=== PATIENT | female | born 1980 | race Two or more races ===

== ENCOUNTER 2023-05-11 21:32 | Emergency (ER) | payer SELFPAY ==
[~2023-05-11] VITALS: Ht 162.6 cm; Wt 59.0 kg
[2023-05-11 22:00] VITALS: BP 94/69; PULSE 90; RESP 18; O2SAT 97
== END 2023-05-12 00:46 | disposition home or self-care (01) ==
LOC: EDBD 21:32 → ER 21:32
DX: S00.31XA Abrasion of nose, initial encounter (principal); S50.311A Abrasion of right elbow, initial encounter; F10.129 Alcohol abuse with intoxication, unspecified; R51.9 Headache, unspecified; Y90.0 Blood alcohol level of less than 20 mg/100 ml; V98.8XXA Other specified transport accidents, initial encounter; Y93.89 Activity, other specified; Y92.89 Other specified places as the place of occurrence of the external cause; Y99.8 Other external cause status
CPT/HCPCS: 70450; 72125